=== PATIENT | female | born 1970 | race Caucasian/White ===

== ENCOUNTER 2020-06-20 14:31 | Outpatient (REF) | payer OTHER, SELFPAY | END 2020-06-20 14:32 | disposition home or self-care (01) | LOC: HO.SCI 14:31 | PROVIDERS: Visit Provider Internal Medicine | DX: Z20.828 Contact with and (suspected) exposure to other viral communicable diseases (principal) | CPT/HCPCS: C9803; U0003 ==

== ENCOUNTER 2020-08-13 11:47 | Outpatient (REF) | payer OTHER, SELFPAY ==
[2020-08-13 13:59] LABS: MANUAL DIFF FLAG NO
[2020-08-13 14:07] LABS: Basophils Percent Auto 0.5 % (0-2); Eosinophils Percent Auto 0.6 % (0-4); Hematocrit 44.2 % (37-47); Hemoglobin 15.3 g/dl (12.0-16.0); Imm Gran Abs Auto 0.02 X10*3/uL (0.00-0.03); Imm Gran Pct Auto 0.3 % (0.0-0.4); Lymphocytes Absolute Auto 1.6 X10*3/uL (1.2-4.9); Lymphocytes Percent Auto 24.5 % (20-40); Mean Corpuscular HGB Conc 34.6 g/dl (31.0-35.0); Mean Corpuscular Hemoglobin 32.6 pg (27.0-33.0); Monocytes Absolute Auto 0.4 X10*3/uL (0.1-1.2); Monocytes Percent Auto 6.4 % (2-11); Neutrophils Absolute Auto 4.3 X10*3/uL (2.0-8.3); Neutrophils Percent Auto 67.7 % (45-73); Platelet Count 354 X10*3/uL (160-400); Red Cell Distribution Width 11.7 % (11.0-16.0); White Blood Count 6.4 X10*3/uL (4.8-10.8)
[2020-08-13 14:45] LABS: Alanine Aminotransferase 11 U/L (0-31); Albumin Level 4.7 g/dL (3.5-5.0); Alkaline Phosphatase 50 U/L (39-117); Anion Gap 13 (12-20); Aspartate Amino Transferase 13 U/L (5-31); Bilirubin Total 1.2 mg/dL (0.0-1.0); Blood Urea Nitrogen 8 mg/dL (9-16); Calcium 9.3 mg/dL (8.4-10.2); Carbon Dioxide 29 mmol/L (22-29); Chloride 101 mmol/L (96-108); Cholesterol 170 mg/dL; Estimated Glomerular Filt Rate > 60; Glucose Fasting 94 mg/dL (60-99); HDL Cholesterol 56 mg/dL; LDL Cholesterol Calculated 99 mg/dl; Potassium 4.2 mmol/l (3.3-5.1); Sodium 139 mmol/L (135-145); Total Protein 7.9 g/dL (6.5-8.0); Triglycerides 77 mg/dL
[2020-08-13 14:53] LABS: Free T4 (Free Thyroxine) 0.89 ng/dL (0.71-1.85)
== END 2020-08-13 11:48 | disposition home or self-care (01) ==
LOC: HO.HMGCLDS 11:47
PROVIDERS: PCP Internal Medicine; Visit Provider Internal Medicine
DX: Z00.00 Encounter for general adult medical examination without abnormal findings (principal)
CPT/HCPCS: 36415; 80053; 80061; 84439; 84443; 85025

== ENCOUNTER 2020-08-18 11:56 | Outpatient (REF) | payer OTHER, SELFPAY ==
--- NOTE | 2020-08-18 | MM_ITS ---
EXAMINATION: MM SCREENING DIGITAL BREAST TOMOSYNTHESIS, BILATERAL CLINICAL INFORMATION: Screening. Asymptomatic. The lifetime risk of breast cancer based on the Tyrer-Cuzick Model is 14%. COMPARISON: Mammography: 06/08/2019, 12/28/2017, 12/01/2016 TECHNIQUE: Digital breast tomosynthesis is performed in both the craniocaudal and mediolateral oblique views along with computer-aided detection (CAD). Synthesized 2D images are generated from the tomosynthesis. FINDINGS: The breasts are heterogeneously dense, which may obscure small masses (ACR BI-RADS breast composition Category c). Breast tissue composition borders on average fibroglandular. Parenchymal pattern is similar to prior studies. No interval mass or architectural abnormality or developing density. No abnormal calcifications. No significant changes. MM/MM tomosynthesis screening BI IMPRESSION: No mammographic evidence of malignancy. ASSESSMENT: BI-RADS 1: Negative RECOMMENDATION: Routine annual mammography screening. This patient's information was entered into a reminder system with a target due date for their next mammogram.
== END 2020-08-18 11:57 | disposition home or self-care (01) ==
LOC: HO.MAMMO 11:56
PROVIDERS: PCP Internal Medicine; Visit Provider Internal Medicine
DX: Z12.31 Encounter for screening mammogram for malignant neoplasm of breast (principal)
CPT/HCPCS: 77063; 77067

== ENCOUNTER 2021-11-10 15:46 | Outpatient (REF) | payer OTHER, SELFPAY ==
--- NOTE | ~2021-11-10 | MM_ITS ---
EXAMINATION: MM SCREENING DIGITAL BREAST TOMOSYNTHESIS, BILATERAL CLINICAL INFORMATION: Screening. Asymptomatic. The lifetime risk of breast cancer based on the Tyrer-Cuzick Model is 13%. COMPARISON: Mammography: 08/18/2020, 02/05/2019, 12/28/2017 TECHNIQUE: Digital breast tomosynthesis is performed in both the craniocaudal and mediolateral oblique views along with computer-aided detection (CAD). Synthesized 2D images are generated from the tomosynthesis. FINDINGS: The breasts are heterogeneously dense, which may obscure small masses (ACR BI-RADS breast composition Category c). Parenchymal pattern is similar to prior exams. There is no developing density. There are no significant masses, abnormal calcifications, or other abnormalities. The axilla and skin contours are unremarkable. MM/MM tomosynthesis screening BI IMPRESSION: No mammographic evidence of malignancy. ASSESSMENT: BI-RADS 1: Negative RECOMMENDATION: Routine annual mammography screening. This patient's information was entered into a reminder system with a target due date for their next mammogram.
== END 2021-11-10 15:47 | disposition home or self-care (01) ==
LOC: HO.MAMMO 15:46
PROVIDERS: Visit Provider Internal Medicine
DX: Z12.31 Encounter for screening mammogram for malignant neoplasm of breast (principal)
CPT/HCPCS: 77063; 77067

== ENCOUNTER 2022-11-16 15:42 | Outpatient (REF) | payer OTHER, SELFPAY ==
--- NOTE | ~2022-11-16 | MM_ITS ---
EXAMINATION: MM SCREENING DIGITAL BREAST TOMOSYNTHESIS, BILATERAL CLINICAL INFORMATION: Screening. Asymptomatic. The lifetime risk of breast cancer based on the Tyrer-Cuzick Model is 12.5%. COMPARISON: Mammography: 11/10/2021 and studies dating back to 04/19/2012. TECHNIQUE: Digital breast tomosynthesis is performed in both the craniocaudal and mediolateral oblique views along with computer-aided detection (CAD). Synthesized 2D images are generated from the tomosynthesis. FINDINGS: The breasts are heterogeneously dense, which may obscure small masses (ACR BI-RADS breast composition Category c). There is a stable parenchymal pattern of the left breast with no new abnormal dominant mass or suspicious grouping of microcalcifications identified. About the anterior aspect of the right breast superiorly, there is a circumscribed approximately 1 x 0.7 cm density for which spot compression view and possible ultrasound is recommended if the lesion is persistent. MM/MM tomosynthesis screening BI IMPRESSION: Right breast density for further evaluation as described. ASSESSMENT: BI-RADS 0: Incomplete - Need additional imaging evaluation. RECOMMENDATION: 1. Additional views of the right breast. 2. Targeted ultrasound if warranted after review of the additional views. 3. Radiology department staff will contact the patient for additional imaging. This patient's information was entered into a reminder system with a target due date for their next mammogram.
== END 2022-11-16 15:43 | disposition home or self-care (01) ==
LOC: HO.MAMMO 15:42
PROVIDERS: Visit Provider Internal Medicine
DX: Z12.31 Encounter for screening mammogram for malignant neoplasm of breast (principal)
CPT/HCPCS: 77063; 77067

== ENCOUNTER 2022-11-23 14:23 | Outpatient (REF) | payer OTHER, SELFPAY ==
--- NOTE | ~2022-11-23 | MM_ITS ---
EXAMINATION: MM DIAGNOSTIC DIGITAL BREAST TOMOSYNTHESIS, RIGHT US DIAGNOSTIC ULTRASOUND BREAST, RIGHT CLINICAL INFORMATION: Recall from screening for smooth asymmetric density anterior right breast. COMPARISON: Multiple prior mammography exams, most recent 11/16/2022. TECHNIQUE: Digital breast tomosynthesis is performed. 2D images are generated from the tomosynthesis. The following views are obtained: Spot CC, spot MLO x2. Ultrasound right breast is targeted to the circumferential anterior to mid breast including the retroareolar and periareolar region. Grayscale imaging and color Doppler are performed without and with harmonics. FINDINGS: The breasts are heterogeneously dense, which may obscure small masses (ACR BI-RADS breast composition Category c). The additional views show no significant mass or architectural abnormality. There is some mild duct ectasia similar to prior studies. No significant changes. Ultrasound right breast demonstrates no solid mass or architectural abnormality. There is some mild retroareolar duct ectasia with normal anechoic lumen. No intraluminal mass or color flow. There is an incidental anechoic circumscribed simple cyst 4:00 position 3 cm from nipple measuring 6 x 3 mm. There is also an incidental anechoic simple cyst 8:00 position 5 cm from nipple measuring 6 x 4 mm. Both cysts show increased through-transmission of sound and no color flow. Results are discussed with the patient at time of visit. MM/MM tomosynthesis added views R IMPRESSION: -Additional mammographic views show no significant changes from prior studies. No persistent asymmetric density. -Ultrasound demonstrates incidental subcentimeter cysts 4:00 and 8:00 positions. No solid mass or architectural abnormality. ASSESSMENT: BI-RADS 2: Benign RECOMMENDATION: Routine annual mammography screening. This patient's information was entered into a reminder system with a target due date for their next mammogram.
== END 2022-11-23 14:24 | disposition home or self-care (01) ==
LOC: HO.MAMMO 14:23
PROVIDERS: PCP Internal Medicine; Visit Provider Internal Medicine
DX: R92.2 Inconclusive mammogram (principal)
CPT/HCPCS: 76642; 77061; 77065

== ENCOUNTER 2023-11-21 15:12 | Outpatient (REF) | payer OTHER, SELFPAY | END 2023-11-21 15:13 | disposition home or self-care (01) | LOC: HO.MAMMO 15:12 | PROVIDERS: PCP Internal Medicine; Visit Provider Internal Medicine | DX: Z12.31 Encounter for screening mammogram for malignant neoplasm of breast (principal) | CPT/HCPCS: 77063; 77067 ==

== ENCOUNTER → 2023-11-21 15:30 | Outpatient (BNV) | payer OTHER, SELFPAY | PROVIDERS: PCP Internal Medicine; Visit Provider Radiology Diagnostic Radiology | DX: Z12.31 Encounter for screening mammogram for malignant neoplasm of breast (principal) | CPT/HCPCS: 77063; 77067 ==

== ENCOUNTER 2023-12-23 06:58 | Day surgery (SDC) | payer OTHER, SELFPAY ==
[2023-12-21 11:23] VITALS: BMI 36.2
--- NOTE | 2023-12-22 09:31 | P.CONAN_ITS ---
Documented by User: Larisa Davis NP 12/22/23 09:31 HPI - Anesthesia Eval Consult details Narrative: 53yo F for Colonoscopy [facility] Past Medical History Medical History (Updated 12/21/23 @ 11:25 by Marsha Bean RN) No pertinent past medical history Surgical History Surgical History (Updated 12/21/23 @ 11:25 by Marsha Bean RN) Hx of section Hx of right knee surgery Social History Social History (Updated 12/21/23 @ 11:23 by Marsha Bean RN) Household Members: Spouse Patient Tobacco Use Status: Never used Tobacco Use of substances other than those prescribed or required for medical reasons: No Are you DNR?: No Advance Directives: No Advance Directives Information Provided: Yes Meds Allergies Allergy/AdvReac Type Severity Reaction Status Date / Time No Known Allergies Allergy Verified 12/23/23 07:11 Home Medications ?Medication ?Instructions ?Recorded ?Confirmed ?Last Taken ?Type No Known Home Meds 12/21/23 12/23/23 Unknown History Exam Height,Weight and Vital Signs: Height 5 ft 4 in Weight 95.799 kg Assessment and Plan Assessment Anesthesia Assessment: Chart Reviewed Documented by User: Kirk Joe MD 12/23/23 07:39 [facility] Past Medical History Medical History (Updated 12/21/23 @ 11:25 by Marsha Bean RN) No pertinent past medical history Family History Family history of problems with anesthesia: No Surgical History Surgical History (Updated 12/21/23 @ 11:25 by Marsha Bean RN) Hx of section Hx of right knee surgery History of Problems with Anesthesia: No Social History Social History (Updated 12/21/23 @ 11:23 by Marsha Bean RN) Household Members: Spouse Patient Tobacco Use Status: Never used Tobacco Use of substances other than those prescribed or required for medical reasons: No Are you DNR?: No Advance Directives: No Advance Directives Information Provided: Yes Meds Allergies Allergy/AdvReac Type Severity Reaction Status Date / Time No Known Allergies Allergy Verified 12/23/23 07:11 Home Medications ?Medication ?Instructions ?Recorded ?Confirmed ?Last Taken ?Type No Known Home Meds 12/21/23 12/23/23 Unknown History Exam Airway Mallampati Class: II TM Dist: >3cm Neck ROM: Full Loose/Missing/Broken Teeth: No Heart: rrr Lungs: cta Assessment and Plan Assessment Anesthesia Assessment: Anesthesia Plan Discussed Final Anesthetic Review Family History of Problems with Anesthesia: No History of Problems with Anesthesia: No NPO: Yes ASA Class: II Final Preanesthetic Review: No Changes in Pt Med Stat, Meds/Allgs Chart Reviewed, Consent Obtained/Reviewed and Anes Risks/Benef Reviewed Patient Risk: Intermediate Procedure Risk: Intermediate Anesthetic Plan Anesthetic Plan: MAC: Disposition: Standard PACU
[2023-12-23 07:01] VITALS: BMI 35.4
[2023-12-23] MEDS: Lactated Ringers 1,000 ML 100 ML IVCONT (07:22)
[2023-12-23 07:25] VITALS: BP 150/90; PULSE 87; RESP 16; TEMP 36.6; O2SAT 98
--- NOTE | 2023-12-23 08:10 | MHC.SHP ---
Pre-Procedural Eval Section A - 24 Hr Update-Section A only Date of Service: 12/23/23 Section B - Complete if H&P > 30 days Chief Complaint: Encounter for screening for malignant neoplasm of Details of Present Illness: see H&P no changes Relevant Family History (Specify if Yes): No Relevant Social History: None Present Medications: None Medical History: No relevant PMH Allergies: Allergies Allergy/AdvReac Type Severity Reaction Status Date / Time No Known Allergies Allergy Verified 12/23/23 07:11 Review of Systems Sugical H&P ROS: Negative: Constitution, Cardiovascular, Respiratory, Neurological, Psychiatric, Hem-Onc, Allergic/Immunologic, Gastrointestinal, Genitourinary, Musculoskeletal, Integumentary, Endocrine and Eyes/Ears/Nose/Throat Exam Surgical H&P Exam: Normal: HEENT, Normal: Heart, Normal: Lungs, Normal: Extremities, Normal: Abdomen, Normal: Skin and Normal: Neurological Plan Diagnosis/Plan: Unchanged I have reviewed the history and physical and performed a pertinent physical examination on my patient. No changes have occurred unless specified. Time Spent With Patient Time: Total time managing care of this patient today ____ minutes.
[2023-12-23 08:47] VITALS: BP 130/79; PULSE 81; RESP 16; TEMP 36.2; O2SAT 97
[2023-12-23 09:02] VITALS: BP 147/102; PULSE 72; RESP 16; TEMP 36.2; O2SAT 97
--- NOTE | 2023-12-23 09:27 | OP_ITS ---
DATE OF SERVICE: 12/23/2023 SURGEON: Jefe Myers MD INDICATIONS: Colon cancer screening. PREOPERATIVE DIAGNOSIS: POSTOPERATIVE DIAGNOSIS: PROCEDURE PERFORMED: Colonoscopy to the terminal ileum with snare polypectomy. ESTIMATED BLOOD LOSS: COMPLICATIONS: ANESTHESIA: Monitored anesthesia care. ASSISTANTS: SPECIMENS: DESCRIPTION OF PROCEDURE: A history and physical was performed. The risks and benefits of the procedure were explained to the patient and informed consent was obtained. The patient was placed in left lateral decubitus position. A digital rectal exam was performed and was found to be normal. The Olympus pediatric video colonoscope was introduced into the rectum and advanced to the cecum. The cecum was identified by transillumination, palpation, and identification of ileocecal valve. Examination was performed and the scope was removed. She tolerated the procedure well and was returned to recovery area in stable condition. FINDINGS: The terminal ileum was normal. The visualized colonic mucosa was normal. The quality of the prep was good. A single polyp measuring approximately 8 mm identified in the cecum and removed with a hot snare. No other polyps were identified. The quality of the prep was good. Retroflexed examination showed small internal hemorrhoids. IMPRESSION: Colon polyp. RECOMMENDATION: Follow up the biopsy results. MD BRANDAN Petit/KAREN / [id number]
== END 2023-12-23 09:25 | disposition home or self-care (01) ==
PROVIDERS: PCP Internal Medicine; Visit Provider Internal Medicine Gastroenterology
PROC: 0DJD8ZZ Inspection of Lower Intestinal Tract, Via Natural or Artificial Opening Endoscopic (ICD-10-PCS; CPT 45378; principal; 2023-12-23 08:20)
DX: Z12.11 Encounter for screening for malignant neoplasm of colon (principal); D12.0 Benign neoplasm of cecum; K64.8 Other hemorrhoids; Z83.719 Family history of colon polyps, unspecified
CPT/HCPCS: 45385; 88305; J2704

== ENCOUNTER 2024-01-13 09:26 | Outpatient (REF) | payer OTHER, SELFPAY ==
[2024-01-13 10:22] LABS: MANUAL DIFF FLAG NO
[2024-01-13 10:34] LABS: Basophils Percent Auto 0.4 % (0-2); Eosinophils Absolute Auto 0.2 X10*3/uL (0.0-0.4); Eosinophils Percent Auto 2.8 % (0-4); Hematocrit 43.7 % (37.0-47.0); Hemoglobin 15.6 g/dl (12.0-16.0); Imm Gran Abs Auto 0.01 X10*3/uL (0.00-0.03); Imm Gran Pct Auto 0.2 % (0.0-0.4); Lymphocytes Absolute Auto 1.7 X10*3/uL (1.2-4.9); Lymphocytes Percent Auto 30.7 % (20-40); Mean Corpuscular HGB Conc 35.7 g/dl (31.0-35.0); Mean Corpuscular Hemoglobin 33.2 pg (27.0-33.0); Mean Platelet Volume 9.5 fL (9.4-12.3); Monocytes Absolute Auto 0.4 X10*3/uL (0.1-1.2); Monocytes Percent Auto 7.8 % (2-11); Neutrophils Absolute Auto 3.3 x10*3/uL (2.0-8.3); Neutrophils Percent Auto 58.1 % (45-73); Platelet Count 364 X10*3/uL (160-400); Red Cell Distribution Width 12.3 % (11.0-16.0); White Blood Count 5.7 X10*3/uL (4.8-10.8)
[2024-01-13 11:20] LABS: Alanine Aminotransferase 17 U/L (0-31); Albumin Level 4.3 g/dL (3.5-5.0); Alkaline Phosphatase 52 U/L (39-117); Anion Gap 15 (12-20); Aspartate Amino Transferase 17 U/L (5-31); Bilirubin Total 0.8 mg/dL (0.0-1.0); Blood Urea Nitrogen 9 mg/dL (9-16); Calcium 9.1 mg/dL (8.4-10.2); Carbon Dioxide 24 mmol/L (22-29); Chloride 103 mmol/L (96-108); Cholesterol 161 mg/dL (<200); Estimated Glomerular Filt Rate > 60; Glucose Fasting 97 mg/dL (60-99); HDL Cholesterol 45 mg/dL (>40); LDL Cholesterol Calculated 90 mg/dL (<100); Potassium 3.8 mmol/L (3.3-5.1); Sodium 138 mmol/L (135-145); Total Protein 7.5 g/dL (6.5-8.0); Triglycerides 132 mg/dL (<150)
== END 2024-01-13 09:27 | disposition home or self-care (01) ==
LOC: HO.HMGCLDS 09:26
PROVIDERS: PCP Internal Medicine; Visit Provider Internal Medicine
DX: I10 Essential (primary) hypertension (principal); K21.9 Gastro-esophageal reflux disease without esophagitis
CPT/HCPCS: 36415; 80053; 80061; 85025

== ENCOUNTER 2024-01-30 15:19 | Outpatient (REF) | payer OTHER, SELFPAY ==
[2024-01-30 16:54] LABS: Free T4 (Free Thyroxine) 0.79 ng/dL (0.71-1.85); Thyroid Stimulating Hormone 1.05 uIU/mL (0.32-4.0)
== END 2024-01-30 15:20 | disposition home or self-care (01) ==
LOC: HO.HMGCLDS 15:19
PROVIDERS: PCP Internal Medicine; Visit Provider Internal Medicine
DX: R53.83 Other fatigue (principal); I10 Essential (primary) hypertension
CPT/HCPCS: 36415; 84439; 84443

== ENCOUNTER 2024-05-01 08:00 | Outpatient (REF) | payer OTHER, SELFPAY ==
--- NOTE | 2024-05-01 08:04 | EMG_ITS ---
Bilateral median and ulnar motor and sensory studies were performed. Bilateral radial, sensory, and median and lateral antecubital brachial sensory studies were performed and paraspinal muscles were tested with a needle. 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 MD MARTHA Alanis/KAREN / [id number]
== END 2024-05-01 08:01 | disposition home or self-care (01) ==
LOC: HO.NEURO 08:00
PROVIDERS: PCP Internal Medicine; Visit Provider Internal Medicine
DX: R20.2 Paresthesia of skin (principal)
CPT/HCPCS: 95886; 95913

== ENCOUNTER 2024-07-03 11:10 | Outpatient (AMB) | payer OTHER, SELFPAY ==
--- NOTE | 2024-07-03 11:30 | MHC.OFFVIS ---
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 Patient reports numbness and tingling that has been present for a while and has recently been getting worse. EM[facility] done at [facility]. Patient reports for a while more recently her right hand feels like it will explode. States that she drives 2 hours a day which causes an increase of discomfort. Her pain at times radiates up her forearm. States all her fingers become numb, however mostly her PF and MF. Hx Raynauds. 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 She complains of numbness in her thumb, index, and middle fingers bilaterally, right worse than left. Symptoms intermittent, but daily, worse at night and with activities such as driving. She denies any locking or catching. 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 Review of Systems Const All systems reviewed & are unremarkable except as noted in HPI and below Physical Exam Const General: cooperative, healthy appearing and no acute distress Orientation/consciousness: patient oriented x3 HEENT Head: Yes normocephalic and Yes atraumatic Eyes EOM: EOMs intact bilaterally Resp Effort & Inspection: normal respiratory effort and able to speak in complete sentences Cardio Jugular venous distension: no JVD Skin General skin exam: turgor normal Rashes: no rashes Neuro General: patient oriented x3 Extrem Other: Evaluation of Bilateral Upper Extremity: The patient is alert, oriented, and in no acute distress Neuro: Median, Ulnar, Radial nerves motor and sensory intact and sensation is normal to the tips of all digits No thenar or intrinsic wasting Good APB muscle belly firing and good finger cross Vascular: Cap refill brisk ROM: She can make a fist and extend all her digits No locking or catching Skin: No lacerations or abrasions. General: No Ecchymosis. No Erythema or evidence of infection. Nerve Conduction Study: IMPRESSION: Mild to moderate bilateral median neuropathy across carpal tunnel. Sima Mello MD 05/01/2024 Psych Appearance: grossly normal Affect: normal affect Attitude: cooperative Assessment & Plan Assessment & Plan (1) Carpal tunnel syndrome of right wrist: Code(s): G56.01 - Carpal tunnel syndrome, right upper limb Category: Medical (2) Carpal tunnel syndrome of left wrist: Code(s): G56.02 - Carpal tunnel syndrome, left upper limb Category: Medical Plan Assessment & Plan: 1. Right carpal tunnel syndrome, mild-moderate Symptoms intermittent, but daily, worse at night 2. Left carpal tunnel syndrome, mild-moderate Symptoms intermittent, but daily, worse at night I educated her about this condition I discussed operative and non-operative treatment options The patient would like to proceed with surgery, beginning with her right hand. We can discuss treatment for her left hand when she recovers from surgery The risks and benefits of operative treatment were discussed with the patient and the patient wishes to proceed with surgery. These risks include, but are not limited to risk of damage to blood vessels, nerves, tendons, infection, recurrence, incomplete relief of preoperative symptoms, persistent pain, possible need for further surgery and the risks associated with regional blocks and anesthesia. The plan is to take the patient to the operating room sometime in the next few weeks for the following procedures: 1. Right carpal tunnel release, under local All of the preoperative paperwork including the consent was reviewed today. All the patient's questions were answered. The patient understands that they will be contacted by our bass viol repairer soon to schedule this procedure She denies Diabetes, blood thinners, asthma, heart, lung, kidney issues Scribed for Vanessa Miles MD by Darrin Gonzalez, medical laboratory assistant, on 07/03/24 at 11:50 AM, EST. Coding Level of Care Code New Pt Level 4 (06412) Diagnoses Carpal tunnel syndrome of right wrist G56.01 Carpal tunnel syndrome of left wrist G56.02
--- OUTSIDE RECORDS SUMMARY | 2024-07-10 13:18 | XMS_ITS ---
Author Organization [facility] Address [address] [place] [address] Care Team Providers Care Screw Machine Operator Name Role Phone Dawit Wagoner MD Primary Care Provider UnavailJefe Astudillo Jr [phone] REASON FOR VISIT pathology Encounters Encounter Location Date Provider Diagnosis [facility] [address] [place] [address] 01/05/2024 Jefe Myers Jr PLAN OF TREATMENT No Information
--- OUTSIDE RECORDS SUMMARY | 2024-07-10 13:18 | XMS_ITS ---
Author Organization [facility] Address [address] [place] [address] Care Team Providers Care Project Reservoir Engineer Name Role Phone Dawit Wagoner MD Primary Care Provider UnavailJefe Astudillo Jr REASON FOR VISIT screening Encounters Encounter Location Date Provider Diagnosis [facility] Outpatient [address] [place] [phone] 12/23/2023 Jefe Myers Jr Encounter for screening colonoscopy Z12.11 and Colon polyps K63.5 ASSESSMENTS Encounter Date Diagnosis Assessment Notes Treatment Notes Treatment Clinical Notes 12/23/2023 Encounter for screening colonoscopy (ICD-10 - Z12.11) 12/23/2023 Colon polyps (ICD-10 - K63.5) PLAN OF TREATMENT No Information
--- OUTSIDE RECORDS SUMMARY | 2024-07-10 13:19 | XMS_ITS ---
Author Organization [facility] Address [address] [place] [address] Care Team Providers Care Purchasing Buyer Name Role Phone Dawit Wagoner MD Primary Care Provider Jefe Morelos Jr Unavailable [phone] ALLERGIES No Known Allergies REASON FOR VISIT Patient presents today for a screening colonoscopy SOCIAL HISTORY Tobacco Use: Social History Observation Description Date Details (start date - stop date) Never Smoker NA - NA Sex Assigned At : Social History Observation Description Sex Assigned At Unknown Tobacco Use/Smoking Question Answer Notes Patient is a nonsmoker Alcohol Screen Question Answer Notes Did you have a drink contain ing alcohol in the past year? Yes How many drinks did you have on a typical day when you were drinking in the past year? 1 or 2 drinks (0 point) How often did you have 6 or more drinks on one occasion in the past year? Never (0 point) Points 0 Interpretation Negative PROBLEMS Problem Type ICD Code Onset Dates Problem Status W/U Status Risk SNOMED Code Notes Problem Colon cancer screening (Z12.11) Active confirmed [id number] Problem Encounter for other preprocedural examination (Z01.818) Active confirmed 343580705 VITAL SIGNS BMI 36.25 kg/m2 11/03/2023 Heart Rate 80 /min 11/03/2023 Height 64 in 11/03/2023 Weight 211.2 lbs 11/03/2023 Encounters Encounter Location Date Provider Diagnosis [facility] [address] [place] [phone] 11/03/2023 Jefe Myers Jr Colon cancer screening Z12.11 and Encounter for other preprocedural examination Z01.818 ASSESSMENTS Encounter Date Diagnosis Assessment Notes Treatment Notes Treatment Clinical Notes 11/03/2023 Colon cancer screening (ICD-10 - Z12.11) 11/03/2023 Encounter for other preprocedural examination (ICD-10 - Z01.818) PLAN OF TREATMENT Future Test Test Name Order Date COLONOSCOPY 11/03/2023 Next Appt Details Follow Up: 1 Year, Reason: Progress Notes * Examination Category Sub-Category Detail Notes General Examination GENERAL APPEARANCE: in no ac emilia distress HEAD: normocephalic EYES: sclera non-icteric NECK/THYROID: no lymphadenopathy HEART: S1, S2 normal, no mu rmurs CHEST: normal shape and exp ansion LUNGS: clear to auscultatio n bilaterally ABDOMEN: soft, nontender, non distended, bowel sounds present, no organomegaly SKIN: anicteric EXTREMITIES: no clubbing, cyanosi s, or edema PSYCH: cognitive function i ntact ORAL CAVITY: mucosa moist
--- OUTSIDE RECORDS SUMMARY | 2024-07-10 13:19 | XMS_ITS | Patient Health Record ---
Author Organization [facility] Address [address] [place] [address] Care Team Providers Care Claims Counsel Name Role Phone Dawit Wagoner MD Primary Care Provider Jefe Morelos Jr Unavailable ALLERGIES No Known Allergies RESULTS Component Value Reference Range Notes Pathology Reviewed date:01/05/2024 01:14:43 PM Interpretation: Performing Lab:[facility], [address] [place] [phone] Notes/Report: REASON FOR REFERRAL No Information SOCIAL HISTORY Tobacco Use: Social History Observation [...] Problem Colon cancer screening (Z12.11) Active confirmed 869158231 Problem Encounter for other preprocedural examination (Z01.818) Active confirmed [id number] VITAL SIGNS Heart Rate 80 /min 11/03/2023 Height 64 in 11/03/2023 Weight 211.2 lbs 11/03/2023 BMI 36.25 kg/m2 11/03/2023 Encounters Encounter Location Date Provider Diagnosis [facility] [place] [place] Outpatient [address] [place] [phone] 12/23/2023 Jefe Myers Jr Encounter for screening colonoscopy Z12.11 and Colon polyps K63.5 [facility] [address] [place] [phone] 11/03/2023 Jefe Myers Jr Colon cancer screening Z12.11 and Encounter for other preprocedural examination Z01.818 [facility] [address] [place] [address] [place] [phone] 01/05/2024 Jefe Myers Jr ASSESSMENTS Encounter Date Diagnosis Assessment Notes Treatment Notes Treatment Clinical Notes 12/23/2023 Encounter for screening colonoscopy (ICD-10 - Z12.11) 12/23/2023 Colon polyps (ICD-10 - K63.5) 11/03/2023 Colon cancer screening (ICD-10 - Z12.11) 11/03/2023 Encounter for other preprocedural examination (ICD-10 - Z01.818) PLAN OF TREATMENT Future Test Test Name Order Date COLONOSCOPY 11/03/2023 Insurance Providers Payer Name Payer Address Payer Phone Subscriber Number Group Number Insured Name Patient Relationship to Insured Coverage Start Date Coverage End Date [facility] [address] [place], [place] [id number] JOSE ANTONIO LAWSON Self - patient is the insured MEDICAL (GENERAL) HISTORY Surgical History Surgery Date(Month/Year) two C-sections right knee surgery
== END 2024-07-03 12:04 | disposition home or self-care (01) ==
PROVIDERS: PCP Internal Medicine; Visit Provider Orthopaedic Surgery
DX: G56.03 Carpal tunnel syndrome, bilateral upper limbs (principal)
CPT/HCPCS: 99204

== ENCOUNTER → 2024-07-03 11:10 | Outpatient (BNVA) | payer OTHER, SELFPAY | PROVIDERS: PCP Internal Medicine; Visit Provider Orthopaedic Surgery ==

== ENCOUNTER → 2024-09-06 10:14 | Outpatient (BNV) | payer OTHER, SELFPAY | PROVIDERS: PCP Internal Medicine; Visit Provider Orthopaedic Surgery | DX: G56.01 Carpal tunnel syndrome, right upper limb (principal) | CPT/HCPCS: 64721 ==

== ENCOUNTER 2024-09-21 12:41 | Outpatient (AMB) | payer OTHER, SELFPAY ==
--- NOTE | 2024-09-21 12:55 | MHC.OFFVIS ---
Intake Visit Reasons: PO RT CTR 09/06/24 AR Intake Note: Tova is a 54 year old right hand dominant female who presents today post operatively s/p right carpal tunnel release performed 09/06/[address] Miles. Patient denies taking anything for pain, states she could not tolerate oxycodone. Denies numbness, tingling, or finger locking. Sutures removed in office today and steri strips applied. Allergies No Known Allergies Allergy (Verified 09/21/24 13:07) HPI HPI PO RT CTR 09/06/24 AR: Details: Tova is a 54 year old right hand dominant female who presents today post operatively s/p right carpal tunnel release performed 09/06/[address] Miles. Patient denies taking anything for pain, states she could not tolerate oxycodone. Denies numbness, tingling, or finger locking. Sutures removed in office today and steri strips applied. 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 Neuro: Normal sensation of the tips of all digits of the right hand at this time Vascular: Cap refill brisk Pain: No tenderness to palpation about the incision site on volar right wrist No pain with range of motion of the right hand ROM: Patient is able to make a closed fist and extend all digits of the right hand fully and without difficulty Skin: Well approximated and well healing incision site noted on the volar right wrist General: No ecchymosis, erythema, or evidence of infection. Psych: Appears grossly normal Affect normal Attitude cooperative Assessment & Plan Assessment & Plan (1) Carpal tunnel syndrome of right wrist: Code(s): G56.01 - Carpal tunnel syndrome, right upper limb Category: Medical (2) Carpal tunnel syndrome of left wrist: Code(s): G56.02 - Carpal tunnel syndrome, left upper limb Category: Medical Plan 1. Status post right carpal tunnel release DOS 09/06/2024 Patient appears to be recovering well postoperatively Patient was educated about the typical recovery course At this time, patient was informed that she will require no further acute follow-up with us for her right carpal tunnel release, as she has recovered quite well Patient was amenable to this plan 2. Carpal tunnel syndrome, left Symptoms intermittent, not daily, worse at night Patient would like to hold off on any operative intervention on the left side at this time, as she does not find it particularly bothersome \patient is educated on the potential risks of prolonging treatment for carpal tunnel syndrome, namely dense numbness and APB muscle wasting Patient expresses understanding of these risks Patient will follow-up as needed with any acute concerns Coding Level of Care Code Global (35128) Diagnoses Carpal tunnel syndrome of right wrist G56.01 Carpal tunnel syndrome of left wrist G56.02
--- OUTSIDE RECORDS SUMMARY | 2024-09-21 13:12 | XMS_ITS ---
Author Organization [facility] Address [address] [place] [address] Care Team Providers Care Geophysical Drafter Name Role Phone Dawit Wagoner MD Primary Care Provider Jefe Morelos Jr Unavailable [phone] ALLERGIES No Known Allergies REASON FOR [...] Problem Colon cancer screening (Z12.11) Active confirmed 561641080 Problem Encounter for other preprocedural examination (Z01.818) Active confirmed 880768834 VITAL SIGNS BMI 36.25 kg/m2 11/03/2023 Heart Rate 80 /min 11/03/2023 Height 64 in 11/03/2023 Weight 211.2 lbs 11/03/2023 Encounters Encounter Location Date Provider Diagnosis [facility] [address] [place] [phone] 11/03/2023 Jefe Myers Jr Colon cancer screening [...]
--- OUTSIDE RECORDS SUMMARY | 2024-09-21 13:12 | XMS_ITS | Patient Health Record ---
Author Organization [facility] Address [address] [place] [address] Care Team Providers Care Entry Level Paralegal Name Role Phone Dawit Wagoner MD Primary Care Provider Jefe Morelos Jr Unavailable ALLERGIES No Known Allergies RESULTS Component Value Reference Range Notes Pathology Reviewed date:01/05/2024 01:14:43 PM Interpretation: Performing Lab:[facility], [address] [place] [phone] Notes/Report: REASON FOR REFERRAL No Information SOCIAL [...] Problem Colon cancer screening (Z12.11) Active confirmed [id number] Problem Encounter for other preprocedural examination (Z01.818) Active confirmed 318819419 VITAL SIGNS Heart Rate 80 /min 11/03/2023 Height 64 in 11/03/2023 Weight 211.2 lbs 11/03/2023 BMI 36.25 kg/m2 11/03/2023 Encounters Encounter Location Date Provider Diagnosis [facility] [place] Outpatient [address] [place] [phone] 12/23/2023 Jefe Myers Jr Encounter for screening colonoscopy Z12.11 and Colon polyps K63.5 [facility] [address] [place] [phone] 11/03/2023 Jefe Myers Jr Colon cancer screening Z12.11 and Encounter for other preprocedural examination Z01.818 [facility] [address] [place] [address] [place] [phone] 01/05/2024 Jefe Myers Jr ASSESSMENTS Encounter Date [...] Insured Coverage Start Date Coverage End Date [facility] [address] [place], [place] [id number] JOSE ANTONIO LAWSON Self - patient is the insured MEDICAL (GENERAL) HISTORY Surgical History Surgery Date(Month/Year) two C-sections right knee surgery
--- OUTSIDE RECORDS SUMMARY | 2024-09-21 13:13 | XMS_ITS ---
Author Organization [facility] Address [address] [place] [address] Care Team Providers Care Bracelet Maker Novelty Name Role Phone Dawit Wagoner MD Primary Care Provider UnavailJefe Astudillo Jr REASON FOR VISIT screening Encounters Encounter Location Date Provider Diagnosis [facility] [place] Outpatient [address] [place] [phone] 12/23/2023 Jefe Myers Jr Encounter for screening colonoscopy Z12.11 and Colon polyps K63.5 ASSESSMENTS Encounter Date Diagnosis Assessment Notes Treatment Notes Treatment Clinical Notes 12/23/2023 Encounter for screening colonoscopy (ICD-10 - Z12.11) 12/23/2023 Colon polyps (ICD-10 - K63.5) PLAN OF TREATMENT No Information
--- OUTSIDE RECORDS SUMMARY | 2024-09-21 13:13 | XMS_ITS ---
Author Organization [facility] Address [address] [place] [address] Care Team Providers Care Forensic Psychologist Name Role Phone Dawit Wagoner MD Primary Care Provider UnavailJefe Astudillo Jr REASON FOR VISIT pathology Encounters Encounter Location Date Provider Diagnosis [facility] [address] [place] [address] 01/05/2024 Jefe Myers Jr PLAN OF TREATMENT No Information
== END 2024-09-21 13:14 | disposition home or self-care (01) ==
PROVIDERS: PCP Internal Medicine
DX: G56.03 Carpal tunnel syndrome, bilateral upper limbs (principal)
CPT/HCPCS: 99024

== ENCOUNTER → 2024-09-21 12:41 | Outpatient (BNVA) | payer OTHER, SELFPAY | PROVIDERS: PCP Internal Medicine ==

== ENCOUNTER 2024-11-26 14:58 | Outpatient (REF) | payer OTHER, SELFPAY | END 2024-11-26 14:59 | disposition home or self-care (01) | LOC: HO.MAMMO 14:58 | PROVIDERS: Absent Provider Internal Medicine; PCP Internal Medicine; Visit Provider Internal Medicine | DX: Z12.31 Encounter for screening mammogram for malignant neoplasm of breast (principal) | CPT/HCPCS: 77063; 77067 ==

== ENCOUNTER → 2024-11-26 15:15 | Outpatient (BNV) | payer OTHER, SELFPAY | PROVIDERS: Absent Provider Internal Medicine; PCP Internal Medicine; Visit Provider Internal Medicine | DX: Z12.31 Encounter for screening mammogram for malignant neoplasm of breast (principal) | CPT/HCPCS: 77063; 77067 ==

== ENCOUNTER 2025-01-21 08:48 | Outpatient (AMB) | payer OTHER, SELFPAY ==
[2025-01-21 08:42] VITALS: BP 144/76; PULSE 84; TEMP 36.7; O2SAT 99; BMI 37.2
--- NOTE | 2025-01-21 08:42 | MHC.PC.OV ---
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 Hypertension-initially 144/76, repeat 134/82. Does check blood pressures at home which are largely within normal limits with occasional SBP in the 140s. Hyperlipidemia-not on statin Carpal tunnel syndrome-s/p release on the right wrist. Reports symptoms increasing in the left wrist. Following with Dr. Miles Concerns: Lesion on R mid back noticed about 1 month ago in bra line. No pain or pruritus. Not growing Right knee pain- s/p arthoscopy for meniscal tear 8 years ago. Pain did improve. Flare last several months, intermittent without enciting event. Describes as an ache when trying to sleep. Ibuprofen helps. Pain when stepping down from sitting. Drives also bothers her when pushing the peddle but states she is very tense driving. Describes a tightness with some swelling superior aspect of knee. Currenlty asymptomatic. No instability. Carpal tunnel- left bothering Health Maintenance [facility]- follows annually, reports Pap is up-to-date. Last colonoscopy 11/2023 with 5 year follow-up advised due to tubular adenoma. Dr. Myers Last screening mammogram 10/2024, negative for malignancy, 1 year follow-up advised +PHQ-9 and KENDALL-7. No alarm signs. Reports/r/t obesity ROS: General: No fevers, malaise, unintentional weight loss HEENT: No blurred vision, diplopia. No sore throat, nasal congestion, rhinorrhea, sinus pain, ear pain Cardiovascular: No chest pain, palpitations, or leg edema Respiratory: No shortness of breath, wheezing, cough GI: No abdominal pain, nausea, vomiting, diarrhea, constipation, melena, hematochezia : No dysuria, hematuria, increased urinary frequency, decreased urinary output MSK: No myalgia, back pain. see hpi Neuro: No headaches, weakness, paresthesias Skin: see hpi EXAM: Constitutional - Awake and Alert, No apparent distress Eyes - PERRL Cardiovascular - S1S2, RRR, No edema Respiratory - Normal lung expansion, Normal respiratory effort, No respiratory distress, CTA bilaterally Extremities - no calf tenderness bilaterally, no swelling Skin - Warm/Dry. Atypical oblong dry/scaling nevus heterogenous in lateral right back. Skin tone umbilicated nevus of the upper right back Neurological - Alert & oriented x3 Psychological - Appropriate affect PFSH Medical History (Updated 01/21/25 @ 09:21 by ROSANNA Frankel) Hyperlipidemia Hypertension Surgical History (Updated 01/21/25 @ 09:09 by ROSANNA Frankel) S/P carpal tunnel release History of colonoscopy (~12/23/23) Hx of section Hx of right knee surgery Family History (Updated 01/21/25 @ 08:58 by Jane Conway MA) Mother No problems noted. Father No problems noted. 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 1. Little interest or pleasure in doing things: not at all 2. Feeling down, depressed, or hopeless: not at all 3. Trouble falling or staying asleep, or sleeping too much: several days 4. Feeling tired or having little energy: several days 5. Poor appetite or overeating: several days 6. Feeling bad about yourself - or that you are a failure or have let yourself or your family down: several days 7. Trouble concentrating on things, such as reading the newspaper or watching television: several days 8. Moving or speaking so slowly that other people could have noticed. Or the opposite - being so fidgety or restless that you have been moving around a lot more than usual: not at all 9. Thoughts that you would be better off or of hurting yourself in some way: not at all Total score: 5 Source: Developed by Drs. Shorty Baig, Amrita Peterson, Sacha Rouse and colleagues, with an educational rudy from [employer]. Thrive Questionnaire Date Thrive assessed: 01/21/25 I am a: Patient Within the past 12 months, did the food you bought not last and you didn't have the money to get more?: Never true Within the past 12 months, did you worry whether your food would run out before you got money to buy more?: Never true Do you have trouble paying for medicines?: No Do you have trouble getting transportation to medical appointments?: No Do you have trouble paying your heating and electricity bill?: No Do you have trouble taking care of your child, family member or friend?: No Do you have trouble with day-to-day activities such as bathing, preparing meals, shopping, managing finances, etc.?: No Are you currently unemployed and looking for a job?: No Are you interested in more education?: No THRIVE Score: 0 AUDIT C Alcohol Use Questionnaire (AUDIT-C) 1. How often do you have a drink containing alcohol?: Monthly or less 2. How many drinks containing alcohol do you have on a typical day when you are drinking?: 1 or 2 3. How often do you have six or more drinks on one occasion?: Less than monthly Total Score: 2 KENDALL-7 AMB Questionnaire KENDALL-7 Date KENDALL - 7 assessed: 01/21/25 Feeling nervous, anxious, or on edge: 1 = Several days Not being able to stop or control worryin = Not at all Worrying too much about different things: 1 = Several days Trouble relaxin = Several days Being so restless that it is hard to sit still: 1 = Several days Becoming easily annoyed or irritable: 0 = Not at all Feeling afraid as if something awful might happen: 0 = Not at all Total KENDALL-7 score (0-4 normal; 5-9 mild; 10-14 moderate; 15-21 severe): 4 Source: Developed by Drs. Shorty Baig, Amrita Peterson, Sacha Rouse and colleagues, with an educational rudy from [employer]. Physical exam (Primary Care) Vital Signs: Last Vital Signs Temp 98.1 F 01/21/25 08:42 Pulse 84 01/21/25 08:42 BP 144/76 H 01/21/25 08:42 Pulse Ox 99 01/21/25 08:42 Oxygen Delivery Method Room Air 01/21/25 08:42 BMI result Body Mass Index 37.2 Tobacco/Smoking Status: Tobacco use Status Tobacco use date assessed 01/21/25 01/21/25 08:44 Patient Tobacco Use Status Never used Tobacco 01/21/25 08:44 e-Cigarette/Vaping Use Never Used 01/21/25 08:44 PHQ-9: PHQ-9 Score PHQ-9: Total score 5 01/21/25 09:03 Thrive Assessment: Date of Thrive Assessment Date Thrive assessed 01/21/25 01/21/25 08:44 Coding Level of Care Code New Pt Level 4 (53087) Complex EM visit Add On G2211 Diagnoses Hypertension I10 Hyperlipidemia E78.5 Right knee pain M25.561 Obesity, class 2 E66.812 Atypical nevus of back D22.5 Assessment & Plan Assessment & Plan (1) Hypertension: Code(s): I10 - Essential (primary) hypertension Category: Medical Plan: Controlled on recheck. Continue losartan and amlodipine. Low-sodium diet (2) Hyperlipidemia: Code(s): E78.5 - Hyperlipidemia, unspecified Category: Medical Plan: Lipid panel ordered (3) Right knee pain: Code(s): M25.561 - Pain in right knee Category: Medical Plan: X-ray of the right knee ordered. Referred for physical therapy. Continue conservative analgesics and topicals (4) Obesity, class 2: Code(s): E66.812 - Obesity, class 2 Category: Medical Plan: Weight loss efforts encouraged. Refer to nutrition/dietitian (5) Atypical nevus of back: Code(s): D22.5 - Melanocytic nevi of trunk Category: Medical Plan: Referral placed to dermatology Plan Advised to follow-up with Dr. Miles regarding carpal tunnel in the left wrist Follow-up in 6 months with labs completed following visit today. Refer to nutrition and physical therapy. X-ray of the right knee. Refer to Dermatology. Orders: Orders Complete Blood Count Auto Diff Today D22.5 - Melanocytic nevi of trunk, E66.812 - Obesity, class 2, E78.5 - Hyperlipidemia, unspecified, M25.561 - Pain in right knee, Z78.0 - Asymptomatic menopausal state Hemoglobin A1c Today D22.5 - Melanocytic nevi of trunk, E66.812 - Obesity, class 2, E78.5 - Hyperlipidemia, unspecified, M25.561 - Pain in right knee, Z78.0 - Asymptomatic menopausal state Liver Panel Today D22.5 - Melanocytic nevi of trunk, E66.812 - Obesity, class 2, E78.5 - Hyperlipidemia, unspecified, M25.561 - Pain in right knee, Z78.0 - Asymptomatic menopausal state PT Evaluation and Treatment Today M25.561 - Pain in right knee Basic Metabolic Panel Today D22.5 - Melanocytic nevi of trunk, E66.812 - Obesity, class 2, E78.5 - Hyperlipidemia, unspecified, M25.561 - Pain in right knee, Z78.0 - Asymptomatic menopausal state Lipid Panel Today D22.5 - Melanocytic nevi of trunk, E66.812 - Obesity, class 2, E78.5 - Hyperlipidemia, unspecified, M25.561 - Pain in right knee, Z78.0 - Asymptomatic menopausal state Vitamin D 25-OH Total Today D22.5 - Melanocytic nevi of trunk, E66.812 - Obesity, class 2, E78.5 - Hyperlipidemia, unspecified, M25.561 - Pain in right knee, Z78.0 - Asymptomatic menopausal state Thyroid Stimulating Hormone Today D22.5 - Melanocytic nevi of trunk, E66.812 - Obesity, class 2, E78.5 - Hyperlipidemia, unspecified, M25.561 - Pain in right knee, Z78.0 - Asymptomatic menopausal state XR knee RT 3V Today E66.812 - Obesity, class 2, M25.561 - Pain in right knee Referrals Nutrition/Dietitian Referral E66.812 - Obesity, class 2 Dermatology Referral D22.5 - Melanocytic nevi of trunk
[2025-01-21 09:12] VITALS: BP 134/82
--- OUTSIDE RECORDS SUMMARY | 2025-01-21 09:14 | XMS_ITS | Patient Health Record ---
Author Organization [facility] Address [address] [place] [address] Care Team Providers Care Acute Dialysis Registered Nurse Name Role Phone Dawit Wagoner MD Primary Care Provider Jefe Morelos Jr Unavailable Allergies No Known Allergies Reason For Referral No Information Social History Tobacco Use: Social History Observation Description Date Details (start date - stop date) Never Smoker NA - NA Tobacco Use/Smoking Question Answer Notes Patient is [...] Never (0 point) Points 0 Interpretation Negative Problems Problem Type SNOMED Code ICD Code Onset Dates Problem Status W/U Status Risk Notes Problem [id number] Colon cancer screening (Z12.11) Active confirmed Problem 101768483 Encounter for other preprocedural examination (Z01.818) Active confirmed Plan Of Treatment Future Test Test Name Order Date COLONOSCOPY 11/03/2023 Insurance Providers Payer Name Payer Address Payer Phone Subscriber Number Group Number Insured Name Patient Relationship to Insured Coverage Start Date Coverage End Date [facility] [address] [place] [id number] JOSE ATNONIO LAWSON Self - patient is the insured Medical (General) History Surgical History Surgery Date(Month/Year) two C-sections right knee surgery
== END 2025-01-21 09:20 | disposition home or self-care (01) ==
LOC: HO.HMCHD 08:48
PROVIDERS: PCP Internal Medicine; Visit Provider Physician Assistant
DX: I10 Essential (primary) hypertension (principal); E78.5 Hyperlipidemia, unspecified; M25.561 Pain in right knee; E66.812 Obesity, class 2; D22.5 Melanocytic nevi of trunk

== ENCOUNTER 2025-01-21 08:48 | Outpatient (REF) | payer OTHER, SELFPAY ==
--- NOTE | ~2025-01-21 | XR_ITS ---
CLINICAL HISTORY: M25.561 - Pain in right knee Radiographs of the right knee, 3 views Comparison: None available Findings: There is no fracture or dislocation. Mild medial tibiofemoral compartment joint space narrowing. Mild osteophytosis of the medial tibiofemoral and patellofemoral compartments. Small suprapatellar enthesophyte. Bone mineralization is normal. Small joint effusion. Soft tissue swelling. Impression: Small joint effusion. Mild degenerative change. This document has been electronically signed by: Lore Alberto MD on 01/22/2025 14:56:21
[2025-01-21 09:39] LABS: MANUAL DIFF FLAG NO
[2025-01-21 10:34] LABS: Basophils Percent Auto 0.6 % (0-2); Eosinophils Absolute Auto 0.2 X10*3/uL (0.0-0.4); Eosinophils Percent Auto 3.2 % (0-4); Hematocrit 41.2 % (37.0-47.0); Hemoglobin 14.7 g/dl (12.0-16.0); Imm Gran Abs Auto 0.03 X10*3/uL (0.00-0.03); Imm Gran Pct Auto 0.6 % (0.0-0.4); Lymphocytes Absolute Auto 1.9 X10*3/uL (1.2-4.9); Lymphocytes Percent Auto 37.9 % (20-40); Mean Corpuscular HGB Conc 35.7 g/dl (31.0-35.0); Mean Corpuscular Hemoglobin 32.8 pg (27.0-33.0); Mean Platelet Volume 9.4 fL (9.4-12.3); Monocytes Absolute Auto 0.4 X10*3/uL (0.1-1.2); Monocytes Percent Auto 8.7 % (2-11); Neutrophils Absolute Auto 2.5 x10*3/uL (2.0-8.3); Platelet Count 336 X10*3/uL (160-400); Red Blood Count 4.48 X10*6/uL (4.20-5.50); Red Cell Distribution Width 11.9 % (11.0-16.0); White Blood Count 5.1 X10*3/uL (4.8-10.8)
[2025-01-21 10:41] LABS: Estimated Average Glucose 91 mg/dL; Hemoglobin A1c % 4.8 % (<6.0)
[2025-01-21 11:28] LABS: Alanine Aminotransferase 49 U/L (0-31); Albumin Level 4.7 g/dL (3.5-5.0); Alkaline Phosphatase 60 U/L (39-117); Anion Gap 12 (12-20); Aspartate Amino Transferase 33 U/L (5-31); Bilirubin Direct 0.2 mg/dL (0.0-0.5); Bilirubin Total 0.7 mg/dL (0.0-1.0); Blood Urea Nitrogen 12 mg/dL (9-16); Calcium 9.4 mg/dL (8.4-10.2); Carbon Dioxide 27 mmol/L (22-29); Chloride 105 mmol/L (96-108); Cholesterol 179 mg/dL (<200); Estimated Glomerular Filt Rate > 60; Glucose Random 100 mg/dL (60-115); HDL Cholesterol 49 mg/dL (>40); LDL Cholesterol Calculated 106 mg/dL (<100); Potassium 4.2 mmol/L (3.3-5.1); Sodium 140 mmol/L (135-145); Thyroid Stimulating Hormone 1.66 uIU/mL (0.32-4.0); Total Protein 7.6 g/dL (6.5-8.0); Triglycerides 120 mg/dL (<150); Vitamin D 25-OH Total 27.5 ng/mL (>30)
== END 2025-01-21 08:49 | disposition home or self-care (01) ==
LOC: HO.LAB 08:48
PROVIDERS: PCP Internal Medicine; Visit Provider Physician Assistant
DX: E78.5 Hyperlipidemia, unspecified (principal); M25.561 Pain in right knee; D22.5 Melanocytic nevi of trunk; E66.812 Obesity, class 2; Z78.0 Asymptomatic menopausal state; Z13.1 Encounter for screening for diabetes mellitus
CPT/HCPCS: 36415; 73562; 80048; 80061; 80076; 82306; 83036; 84443; 85025

== ENCOUNTER → 2025-01-21 09:42 | Outpatient (BNV) | payer OTHER, SELFPAY | PROVIDERS: PCP Internal Medicine; Visit Provider Radiology Diagnostic Radiology | DX: M25.461 Effusion, right knee (principal) | CPT/HCPCS: 73562 ==

== ENCOUNTER 2025-03-14 13:45 | Outpatient (AMB) | payer OTHER, SELFPAY ==
--- NOTE | 2025-03-14 14:11 | MHC.AMNUTRGE ---
VS Expanded 03/14/25 14:12 03/19/25 10:35 Height 5 ft 4 in 5 ft 4 in Weight 200 lb 6.403 oz 200 lb BMI 34.4 34.3 Intake Visit Reasons: Obesity, class 2 Allergies No Known Allergies Allergy (Verified 01/21/25 08:42) Nutrition Presentation Details: Pt presents for MNT for obesity food frequency fruits 1-2 /d fish : 1-2 x/wk dairy : 2/d veg:daily eoth/smoking--- physical activity:ADL Beverages: water/milk/juice/low sugar beverages eating out 1-2/m looking to work on meal planning for wt loss BS Monitoring Most Recent Diabetes Results: Cholesterol, (<200) 179 mg/dL 01/21/25 HDL Cholesterol, (>40) 49 mg/dL 01/21/25 Triglycerides, (<150) 120 mg/dL 01/21/25 Creatinine, (0.5-1.4) 0.68 mg/dL 01/21/25 BUN, (9-16) 12 mg/dL 01/21/25 Sodium, (135-145) 140 mmol/L 01/21/25 Potassium, (3.3-5.1) 4.2 mmol/L 01/21/25 Chloride, (96-108) 105 mmol/L 01/21/25 Carbon Dioxide, (22-29) 27 mmol/L 01/21/25 Calcium, (8.4-10.2) 9.4 mg/dL 01/21/25 AST, (5-31) 33 U/L H 01/21/25 ALT, (0-31) 49 U/L H 01/21/25 Total Protein, (6.5-8.0) 7.6 g/dL 01/21/25 Albumin, (3.5-5.0) 4.7 g/dL 01/21/25 BNL-Jtzuywg-Ct.Jeor Equation Height: 5 ft 4 in Weight: 200 lb Resting Metabolic Rate: 1500.52 Calculated Activity Level: Sedentary Calories Needed to Maintain Weight: 1800.62 Diagnosis Nutrition problem #1: overweight/obesity As related to (etiology) #1: diagnosis As evidenced by (sign/symptom) #1: high BMI (34 on 03/25) [facility] Medical History (Updated 01/21/25 @ 09:21 by ROSANNA Frankel) Hyperlipidemia Hypertension Surgical History (Updated 01/21/25 @ 09:09 by ROSANNA Frankel) S/P carpal tunnel release History of colonoscopy (~12/23/23) Hx of section Hx of right knee surgery Family History (Updated 01/21/25 @ 08:58 by Jane Conway MA) Mother No problems noted. Father No problems noted. 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 Cognitive needs: No Hearing needs: No Vision needs: Yes (rx glasses) Assessment & Plan Assessment & Plan (1) Obesity, class 2: Code(s): E66.812 - Obesity, class 2 Category: Medical Plan: Wt: 100 Kg ( 03/25 ) Est kcal needs as per MSJ: 1800 (40% carb, 30% protein/fat) Est fluid needs as per 25-30 ml/d: 3000 Est prot per day as per 1 g/kg bw: 100 Recommend fiber intake : 8-10 g per day and gradually increase to 25-28 g per day for women and 35-38 g for men or as tolerated Recommend sodium intake per day : less than 2300 mg Educated patient on: ( R = reviewed V = verbalizes understanding N/R = needs review N/A = not applicable Food sources of carbohydrate, adequate serving sizes and its role in various health conditions: R Differences between complex carbohydrates a simple carbohydrates, role of fiber in diet: R Lean protein sources of foods: R Differences between types of fats and role in diet (mono on saturated fat fatty acids, saturated fatty acids, trans fats): R V N/R Food sources of sodium in salt and healthy modifications for heart health in kidney health: R V R/V Vitamins and minerals: R V N/R Healthy plate method concept: R Physical activity: Benefits a precaution: R Patient Instructions: Continue working on following healthy plate method consider a meal replacement once a day watch portion sizes and total carb gradually reducing to less than 180 g per day choosing fiber rich foods Coding Level of Care Code Nutr Indiv Intake (08494) Diagnoses Obesity, class 2 E66.812 Time Spent (min) 30
[2025-03-14 14:12] VITALS: BMI 34.4
--- OUTSIDE RECORDS SUMMARY | 2025-03-14 14:38 | XMS_ITS | Patient Health Record ---
Author Organization [facility] Address [address] [place] [address] Care Team Providers Care Maths Tutor Name Role Phone Rizwana (RETIRED) Dawit DISLA Primary Care Provide r Jefe Rose Jr Unavailable Allergies No Known Allergies Reason [...] Problem Status W/U Status Risk Notes Problem 011894451 Colon cancer screening (Z12.11) Active confirmed Problem [id number] Encounter for other preprocedural examination (Z01.818) Active confirmed Plan Of Treatment Future Test Test Name Order Date COLONOSCOPY 11/03/2023 Insurance Providers Payer Name Payer Address Payer Phone Subscriber Number Group Number Insured Name Patient Relationship to Insured Coverage Start Date Coverage End Date [facility] [address] RODRÍGUEZ BALLESTEROS [id number] JOSE ANTONIO LAWSON Self - patient is the insured Medical (General) History Surgical History Surgery Date(Month/Year) two C-sections right knee surgery
[2025-03-19 10:35] VITALS: BMI 34.3
== END 2025-03-14 14:59 | disposition home or self-care (01) ==
LOC: HO.ENCR 13:46
PROVIDERS: PCP Internal Medicine; Visit Provider Dietitian, Registered
DX: E66.812 Obesity, class 2 (principal)

== ENCOUNTER → 2025-03-14 13:45 | Outpatient (BNVA) | payer OTHER, SELFPAY | PROVIDERS: PCP Internal Medicine; Visit Provider Dietitian, Registered | DX: E66.812 Obesity, class 2 (principal) | CPT/HCPCS: 97802 ==

== ENCOUNTER 2025-05-07 11:23 | Outpatient (AMB) | payer OTHER, SELFPAY ==
--- OUTSIDE RECORDS SUMMARY | 2023-12-23 04:20 | XMS_ITS ---
Author Organization [facility] Address [address] [place] [phone] Care Team Providers Care Taxi Cab Driver Name Role Phone Rizwana (RETIRED) Dawit DISLA Primary Care Provide r Jefe Rose Jr REASON FOR VISIT screening Encounters Encounter Location Date Provider Diagnosis [facility] Outpatient [address] [place] [id number] 12/23/2023 Jefe Myers Jr Encounter for screening colonoscopy Z12.11 and Colon polyps K63.5 Assessments Encounter Date Diagnosis (ICD Code) Assessment Notes Treatment Notes Treatment Clinical Notes Section Notes 12/23/2023 Encounter for screening colonoscopy (ICD-10 - Z12.11) 12/23/2023 Colon polyps (ICD-10 - K63.5) Plan Of Treatment No Information Progress Notes * JOSE ANTONIO LAWSONDOB: [birth year] (55 yo F)Acc No.[id number]:12/23/2023 COLON WITH MAC Patient: JSOE ANTONIO FIELD Provider: Steve Myers MD :1970 A ge:53 Y S ex:Female Date:12/23/2023 Address:[id number] Pcp:Dawit Wagoner (RETIRED )MD Subjective: * Chief Complaints: * 1 . Screening. * Medical History: Objective: * Vitals: Assessment: * Assessment: 1. E ncounter for screening colonoscopy - Z12.11 (Primary) 2 . C olon polyps - K63.5 Plan: * Treatment: * Procedure Codes: 4 5385 LESION REMOVAL COLONOSCOPY * * The named appointment provid er may or may not be the originator of this progress note, and it is not deemed complete until electronically signed by the appointment provider. Sign off status: Pending * Provider: Steve Myers MD Date: 0 12/23/2023 Generated for Win huggins/Eusebia/Eduardoitting on: 1 02:21 PM EDT
[2025-05-07 11:43] VITALS: BMI 32.4
--- NOTE | 2025-05-07 11:43 | A.OFFVIS_ITS ---
VS Expanded 05/07/25 11:43 Height 5 ft 4 in Weight 188 lb 11.451 oz BMI 32.4 Intake Visit Reasons: Obesity Allergies No Known Allergies Allergy (Verified 01/21/25 08:42) Nutrition Presentation Details: Pt presents for MNT f/u for obesity Pt reports working on mindful eating, combining prot/healthier carb choices, motivated physical activity: walking 15-20 minutes Hydration: water/low sugar beverages with meals/snack s BS Monitoring Most Recent Diabetes Results: Cholesterol, (<200) 179 mg/dL 01/21/25 HDL Cholesterol, (>40) 49 mg/dL 01/21/25 Triglycerides, (<150) 120 mg/dL 01/21/25 Creatinine, (0.5-1.4) 0.68 mg/dL 01/21/25 BUN, (9-16) 12 mg/dL 01/21/25 Sodium, (135-145) 140 mmol/L 01/21/25 Potassium, (3.3-5.1) 4.2 mmol/L 01/21/25 Chloride, (96-108) 105 mmol/L 01/21/25 Carbon Dioxide, (22-29) 27 mmol/L 01/21/25 Calcium, (8.4-10.2) 9.4 mg/dL 01/21/25 AST, (5-31) 33 U/L H 01/21/25 ALT, (0-31) 49 U/L H 01/21/25 Total Protein, (6.5-8.0) 7.6 g/dL 01/21/25 Albumin, (3.5-5.0) 4.7 g/dL 01/21/25 [facility] Medical History (Updated 01/21/25 @ 09:21 by ROSANNA Frankel) Hyperlipidemia Hypertension Surgical History (Updated 01/21/25 @ 09:09 by ROSANNA Frankel) S/P carpal tunnel release History of colonoscopy (~12/23/23) Hx of section Hx of right knee surgery Family History (Updated 01/21/25 @ 08:58 by Jane Conway MA) Mother No problems noted. Father No problems noted. 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 Cognitive needs: No Hearing needs: No Vision needs: Yes (rx glasses) Assessment & Plan Assessment & Plan (1) Obesity, class 2: Code(s): E66.812 - Obesity, class 2 Category: Medical Plan: Wt: 100 Kg ( 03/25 ), 86 kg(05/25) Est kcal needs as per MSJ: 1800 (40% carb, 30% protein/fat) Est fluid needs as per 25-30 ml/d: 3000 Est prot per day as per 1 g/kg bw: 100 Recommend fiber intake : 8-10 g per day and gradually increase to 25-28 g per day for women and 35-38 g for men or as tolerated Recommend sodium intake per day : less than 2300 mg Educated patient on: ( R = reviewed V = verbalizes understanding N/R = needs review N/A = not applicable * Food sources of carbohydrate, adequate serving sizes and its role in various health conditions: R ,v * Differences between complex carbohydrates a simple carbohydrates, role of f iber in diet: R ,v * Lean protein sources of foods: R * Differences between types of fats and role in diet (mono on saturated fat fatty acids, saturated fatty acids, trans fats): R V N/R * Food sources of sodium in salt and healthy modifications for heart health in kidney health: R V R/V * Vitamins and minerals: R * Healthy plate method concept: R * Physical activity: Benefits a precaution: R Patient Instructions: Continue as established , reducing total carb to 45 g at meal (3 meals/day) and 0-20 g as snack 2-3 /day if needed work on reducing amount of fat added to the foods Coding Level of Care Code Nutr Indiv Subseq (69382) Diagnoses Obesity, class 2 E66.812 Time Spent (min) 30
--- OUTSIDE RECORDS SUMMARY | 2025-05-07 14:21 | XMS_ITS | Patient Health Record ---
Author Organization [facility] Address [address] [place] [address] Care Team Providers Care Acoustic Sensor Operator Name Role Phone Rizwana (RETIRED) Dawit DISLA Primary Care Provide r Jefe Rose Jr Unavailable [phone] Allergies No Known Allergies Reason For Referral [...] Problem Status W/U Status Risk Notes Problem [id number] Colon cancer screening (Z12.11) Active confirmed Problem 522247960 Encounter for other preprocedural examination (Z01.818) Active confirmed Plan Of Treatment Future Test Test Name Order Date COLONOSCOPY 11/03/2023 Insurance Providers Payer Name Payer Address Payer Phone Subscriber Number Group Number Insured Name Patient Relationship to Insured Coverage Start Date Coverage End Date [facility] [address] RODRÍGUEZ BALLESTEROS [id number] JOSE ANTNOIO LAWSON Self - patient is the insured Medical (General) History Surgical History Surgery Date(Month/Year) two C-sections right knee surgery
== END 2025-05-07 12:10 | disposition home or self-care (01) ==
LOC: HO.ENCR 11:24
PROVIDERS: PCP Internal Medicine; Visit Provider Dietitian, Registered
DX: E66.812 Obesity, class 2 (principal)

== ENCOUNTER → 2025-05-07 11:23 | Outpatient (BNVA) | payer OTHER, SELFPAY | PROVIDERS: PCP Internal Medicine; Visit Provider Dietitian, Registered | DX: E66.812 Obesity, class 2 (principal); I10 Essential (primary) hypertension; Z68.32 Body mass index [BMI] 32.0-32.9, adult; E78.5 Hyperlipidemia, unspecified; Z71.3 Dietary counseling and surveillance | CPT/HCPCS: 97803 ==

== ENCOUNTER 2025-07-17 08:27 | Outpatient (REF) | payer OTHER, SELFPAY ==
--- OUTSIDE RECORDS SUMMARY | 2025-07-17 08:38 | XMS_ITS | Patient Health Record ---
Author Organization [facility] Address [address] [place] [address] Care Team Providers Care Emergency Worker Name Role Phone Rizwana (RETIRED) Dawit DISLA Primary Care Provide r Jefe Rose Jr Unavailable [phone] Allergies No Known Allergies Reason For Referral No Information Social History Tobacco Use: Social History Observation Description Date Details (start date - stop date) Never Smoker NA - NA Social History Drugs/Alcohol: Social Info Question Answer Notes Alcohol Screen Did you have a drink containing alcohol in the past year? Yes How many drinks did you have on a typical day when you were drinking in the past year? 1 or 2 drinks (0 point) How often did you have 6 or more drinks on one occasion in the past year? 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[employer] Problems Problem Type SNOMED Code ICD Code Onset Dates Problem Status W/U Status Risk Notes Problem Colon cancer screening (570351338) Colon cancer screening (Z12.11) Active confirmed Problem Pre-procedure evaluation check (334518819) Encounter for other preprocedural examination (Z01.818) Active confirmed Plan Of Treatment Future Test Test Name Order Date COLONOSCOPY 11/03/2023 Insurance Providers Payer Name Payer Address Payer Phone Subscriber Number Group Number Insured Name Patient Relationship to Insured Coverage Start Date Coverage End Date [facility] [address] [place], [place] [id number] JOSE ANTONIO LAWSON Self - patient is the insured Medical (General) History Surgical History Surgery Date(Month/Year) two C-sections right knee surgery
[2025-07-17 11:00] LABS: Anion Gap 12 (12-20); Blood Urea Nitrogen 11 mg/dL (9-16); Calcium 9.6 mg/dL (8.4-10.2); Carbon Dioxide 29 mmol/L (22-29); Chloride 102 mmol/L (96-108); Cholesterol 196 mg/dL (<200); Estimated Glomerular Filt Rate > 60; HDL Cholesterol 56 mg/dL (>40); Potassium 4.0 mmol/L (3.3-5.1); Sodium 139 mmol/L (135-145); Triglycerides 142 mg/dL (<150)
== END 2025-07-17 08:28 | disposition home or self-care (01) ==
LOC: HO.HMGCLDS 08:27
PROVIDERS: PCP Physician Assistant; Visit Provider Physician Assistant
DX: I10 Essential (primary) hypertension (principal); E78.5 Hyperlipidemia, unspecified
CPT/HCPCS: 36415; 80048; 80061

== ENCOUNTER 2025-07-22 08:18 | Outpatient (AMB) | payer OTHER, SELFPAY ==
--- NOTE | 2025-07-22 08:20 | A.OFFPC_ITS ---
Vital Signs 07/22/25 08:26 07/22/25 11:03 Height 5 ft 4 in Weight 88.961 kg BMI 33.7 BP 142/78 H 130/76 Pulse 87 Pulse Source Pulse Oximeter Temp 97.8 F Temp Source Temporal Artery Scan Pulse Oximetry (%) 99 Oxygen Delivery Method Room Air Intake Visit Reasons: 6 Month F/U Grinder Set Up Operator Thread Tool Required: No Accompanied by: Self / Same As Patient Allergies No Known Allergies Allergy (Verified 07/22/25 08:21) Tobacco use date assessed: 01/21/25 Dental Screening Dental Screen Date: 01/21/25 HPI HPI Comments History of Present Illness Details 54-year-old female with history of hyper tension, hyperlipidemia, carpal tunnel syndrome, obesity presents to the office today for management of chronic conditions. Last seen 6 months ago Hypertension-initially 142/78. Does check blood pressures at home which are largely within normal limits Hyperlipidemia-not on statin, last LDL 112 Carpal tunnel syndrome-s/p release on the right wrist. Reports symptoms increasing in the left wrist. Following with Dr. Miles Post menopause problems- [facility] vaginal estadiol- dyspareunia, vaginal dryness. Also on transderm patch and progesterone. Starting to notice some benenfit. Sleeping better, less warm. Sexual issues have also resolved. Obesity- BMI 33.7. 10 pound increase recently but overall down 20 pounds since December Concerns: As above Health Maintenance [facility]- follows annually, reports Pap is up-to-date. Last colonoscopy 11/2023 with 5 year follow-up advised due to tubular adenoma. Dr. Myers Last screening mammogram 10/2024, negative for malignancy, 1 year follow-up advised Following with [facility] surveillance ROS: none EXAM: Constitutional - Awake and Alert, No apparent distress Eyes - PERRL Cardiovascular - S1S2, RRR, No edema Respiratory - Normal lung expansion, Normal respiratory effort, No respiratory distress, CTA bilaterally Extremities - no calf tenderness bilaterally, no swelling Skin - Warm/Dry. Neurological - Alert & oriented x3 Psychological - Appropriate affect [facility] Medical History (Updated 07/22/25 @ 11:02 by ROSANNA Frankel) Vitamin D deficiency Hyperlipidemia Hypertension Surgical History (Updated 01/21/25 @ 09:09 by ROSANNA Frankel) S/P carpal tunnel release History of colonoscopy (~12/23/23) Hx of section Hx of right knee surgery Family History (Updated 01/21/25 @ 08:58 by Jane Conway MA) Mother No problems noted. Father No problems noted. 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 How many drinks containing alcohol do you have on a typical day when you are drinking?: 1 or 2 3. How often do you have six or more drinks on one occasion?: Never Total Score: 0 KENDALL-7 AMB Questionnaire KENDALL-7 Date KENDALL - 7 assessed: 01/21/25 Source: Developed by Drs. Shorty Baig, Amrita Peterson, Sacha Rouse and colleagues, with an educational rudy from [employer] Physical exam (Primary Care) Vital Signs: Last Vital Signs Temp 97.8 F 07/22/25 08:26 Pulse 87 07/22/25 08:26 BP 142/78 H 07/22/25 08:26 Pulse Ox 99 07/22/25 08:26 Oxygen Delivery Method Room Air 07/22/25 08:26 BMI result Body Mass Index 33.7 Tobacco/Smoking Status: Tobacco use Status Tobacco use date assessed 01/21/25 07/22/25 08:23 Patient Tobacco Use Status Never used Tobacco 07/22/25 08:23 e-Cigarette/Vaping Use Never Used 07/22/25 08:23 Thrive Assessment: Date of Thrive Assessment Date Thrive assessed 01/21/25 07/22/25 08:23 Coding Level of Care Code Est Pt Level 4 (09592) Add On Problem Visit Only Diagnoses Hypertension I10 Hyperlipidemia E78.5 Obesity, class 2 E66.812 Menopausal problem N95.9 Assessment & Plan Assessment & Plan (1) Hypertension: Code(s): I10 - Essential (primary) hypertension Category: Medical Plan: Controlled on recheck. Continue losartan and amlodipine. Low-sodium diet (2) Hyperlipidemia: Code(s): E78.5 - Hyperlipidemia, unspecified Category: Medical Plan: Lipid panel ordered. Reasonably controlled at this time. Recommend diet low in saturated fats, highly processed foods as well as ongoing weight loss efforts with regular exercise (3) Obesity, class 2: Code(s): E66.812 - Obesity, class 2 Category: Medical Plan: Weight loss efforts encouraged. Continue following with retail cosmetics sales beauty advisor. Recommend moderate intensity exercise for at least 150 minutes per week. (4) Menopausal problem: Code(s): N95.9 - Unspecified menopausal and perimenopausal disorder Category: Medical Plan: Continue following with work ticket distributor. Can continue estradiol as well as progesterone as symptoms have been improving. Plan Follow-up in the office in 6 months with labs completed several days prior to visit Orders: Orders Basic Metabolic Panel 6 Months E55.9 - Vitamin D deficiency, unspecified, E66.812 - Obesity, class 2, E78.5 - Hyperlipidemia, unspecified, I10 - Essential (primary) hypertension Hemoglobin A1c 6 Months E55.9 - Vitamin D deficiency, unspecified, E66.812 - Obesity, class 2, E78.5 - Hyperlipidemia, unspecified, I10 - Essential (primary) hypertension Liver Panel 6 Months E55.9 - Vitamin D deficiency, unspecified, E66.812 - Obesity, class 2, E78.5 - Hyperlipidemia, unspecified, I10 - Essential (primary) hypertension TSH reflex Free T4 6 Months E55.9 - Vitamin D deficiency, unspecified, E66.812 - Obesity, class 2, E78.5 - Hyperlipidemia, unspecified, I10 - Essential (primary) hypertension Vitamin D 25-OH Total 6 Months E55.9 - Vitamin D deficiency, unspecified, E66.812 - Obesity, class 2, E78.5 - Hyperlipidemia, unspecified, I10 - Essential (primary) hypertension Lipid Panel 6 Months E55.9 - Vitamin D deficiency, unspecified, E66.812 - Obesity, class 2, E78.5 - Hyperlipidemia, unspecified, I10 - Essential (primary) hypertension
--- OUTSIDE RECORDS SUMMARY | 2025-07-22 08:25 | XMS_ITS | Patient Health Record ---
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[employer] Problems Problem Type SNOMED Code ICD Code Onset Dates Problem Status W/U Status Risk Notes Problem Colon cancer screening (503673351) Colon cancer screening (Z12.11) Active confirmed Problem Pre-procedure evaluation check (562958857) Encounter for other preprocedural examination (Z01.818) Active confirmed Plan Of Treatment Future Test Test Name Order Date COLONOSCOPY 11/03/2023 Insurance Providers Payer Name Payer Address Payer Phone Subscriber Number Group Number Insured Name Patient Relationship to Insured Coverage Start Date Coverage End Date [facility] [address] [place], [place] [id number] JOSE ANTONIO LAWSON Self - patient is the insured Medical (General) History Surgical History Surgery Date(Month/Year) two C-sections right knee surgery
[2025-07-22 08:26] VITALS: BP 142/78; PULSE 87; TEMP 36.6; O2SAT 99; BMI 33.7
[2025-07-22 11:03] VITALS: BP 130/76
== END 2025-07-22 08:47 | disposition home or self-care (01) ==
LOC: HO.HMCHD 08:18
PROVIDERS: PCP Internal Medicine; Visit Provider Physician Assistant
DX: I10 Essential (primary) hypertension (principal); E78.5 Hyperlipidemia, unspecified; E66.812 Obesity, class 2; N95.9 Unspecified menopausal and perimenopausal disorder